=== PATIENT | male | born 1980 | race Caucasian/White ===

== ENCOUNTER 2019-01-08 03:12 | Emergency (ER) | payer SELFPAY ==
[~2019-01-08] VITALS: Ht 170.2 cm; Wt 72.6 kg
--- NOTE | 2019-01-08 03:30 | NUR ---
DR HIGGINS TO [facility]
[2019-01-08] MEDS ORDERED: CLIN300C11 PO (03:40)
[2019-01-08] MEDS ORDERED: CLINDAMYCIN 150 MG (CLEOCIN) CAP PO ONE (03:45)
[2019-01-08] MEDS ORDERED: IBUPROFEN 600 MG (MOTRIN) TAB PO ONE (03:45)
[2019-01-08 03:53] VITALS: BP 141/83
--- NOTE | 2019-01-08 12:42 | ED General ---
General Chief Complaint: Bite-Animal/Human/Insect Stated Complaint: STUNG BY WASP LT HAND;SWOLLEN Nursing Triage Note: STUNG BY A WASP TWO DAYS AGO INCREASED SWELLING AND PAIN. Nursing Sepsis Screen: No Definite Risk Source of Information: Patient Exam Limitations: No Limitations History of Present Illness Date Seen by Provider: Jan 08, 2019 Time Seen by Provider: 03:30 Initial Comments Patient is a 38 showed right-handed male who presents with left hand, wrist swelling after being stung by a wasp 2 days ago. Patient was stung on the ulnar aspect of the dorsum of his left hand. Patient initially washed area and cleansed it. Reports pain and swelling immediately in the vicinity of loss standing but has gradually migrated up to the proximal wrist increased swelling. No streaking noted. Reports moderate tenderness with palpation and range of motion. No medications therapies taken. No fever chills, nausea vomiting sweats. No history of MRSA. No history of Hymenoptera allergies. No other acute symptoms or complaints Timing/Duration: 1-2 Days Severity: Moderate Associated Systoms: Denies Symptoms Allergies and Home Medications Allergies Coded Allergies: No Known Drug Allergies (Unverified , 01/08/19) Home Medications Clindamycin HCl 300 Mg Capsule, 300 MG PO QID Prescribed by: CADY HIGGINS on 01/08/19 0340 Patient Home Medication List Home Medication List Reviewed: Yes Review of Systems Review of Systems Constitutional: no symptoms reported EENTM: see HPI Respiratory: no symptoms reported Cardiovascular: no symptoms reported Genitourinary: no symptoms reported Musculoskeletal: no symptoms reported Skin: see HPI Past Dqnrtxr-Dfvtho-Quuhgy Hx Patient Social History Alcohol Use: Occasionally Uses Recreational Drug Use: No Smoking Status: Current Everyday Smoker Type Used: Cigarettes 2nd Hand Smoke Exposure: Yes Recent Foreign Travel: No Contact w/Someone Who Travel: No Recent Infectious Disease Expo: No Recent Hopitalizations: No Seasonal Allergies Seasonal Allergies: No Past Medical History Surgeries: Yes (RIGHT KNEE TORN ACL REPAIR) Orthopedic Respiratory: No Cardiac: No Neurological: No Genitourinary: No Gastrointestinal: No Musculoskeletal: No Endocrine: No HEENT: No Cancer: No Psychosocial: Yes Anxiety, Depression Blood Disorders: No Physical Exam Vital Signs Vital Signs - First Documented 01/08/19 03:18 Temp 98.3 Pulse 87 Resp 20 B/P (MAP) 141/83 (102) Pulse Ox 96 Capillary Refill : Less Than 3 Seconds Height, Weight, BMI Height: 5'7.00" Weight: 160lbs. oz. 72.788200kg; BMI Method:Stated General Appearance: No Apparent Distress, WD/WN HEENT: PERRL/EOMI Neck: Full Range of Motion Respiratory: Lungs Clear Cardiovascular: Regular Rate, Rhythm Skin: Other (scabbed over insect bite to volar aspect of the dorsum of left hand, minimal light erythema with soft tissue swelling and tenderness extending to radial aspect of proximal wrist. No induration, weeping, drainage, fluctuance or streaking. Dental pain with range of motion.) Focused Exam Sepsis Stage: Ruled Out Progress/Results/Core Measures Suspected Sepsis Recent Fever Within 48 Hours: No Infection Criteria Present: None New/Unexplained Altered Menta: No Sepsis Screen: No Definite Risk SIRS Temperature:98.3 Pulse: 87 Respiratory Rate: 20 Blood Pressure 141 /83 Mean: 102 Results/Orders My Orders Orders - CADY HIGGINS DO Clindamycin Capsule (Cleocin Capsule) (01/08/19 03:45) Ibuprofen Tablet (Motrin Tablet) (01/08/19 03:45) Medications Given in ED Current Medications Medications Dose Ordered Sig/Milan Route Start Time Stop Time Status Last Admin Dose Admin Clindamycin HCl 300 mg ONCE ONCE PO 01/08/19 03:45 01/08/19 03:47 DC 01/08/19 03:45 300 MG Ibuprofen 600 mg ONCE ONCE PO 01/08/19 03:45 01/08/19 03:47 DC 01/08/19 03:45 600 MG Vital Signs/I&O 01/08/19 01/08/19 03:18 03:53 Temp 98.3 98.3 Pulse 87 87 Resp 20 20 B/P (MAP) 141/83 (102) 141/83 (102) Pulse Ox 96 96 Capillary Refill : Less Than 3 Seconds Blood Pressure Mean: 102 Departure Communication (Admissions) Wasp sting with localized allergic reaction with concern for possible early cellulitis. Patient given ibuprofen paste and arm sling and initial dose of clindamycin. Patient instructed to return to the ED in 24 hours for reexamination. Patient verbalizes understanding and agreement discharge instructions prior to departure. Impression Primary Impression: Wasp sting Additional Impression: Cellulitis of hand, left Disposition: 01 HOME, SELF-CARE Condition: Improved Departure-Patient Inst. Patient Instructions: Insect Allergy, Cellulitis (Skin Infection), Adult (DC) Add. Discharge Instructions: Take ibuprofen and benadryl for left pain and swelling and wear arm sling. Keep hand elevated above heart at rest. Take antibiotics as directed. Follow up with PCP or return to the ED in 24 hours for re-evaluation. All discharge instructions reviewed with patient and/or family. Voiced understanding. Scripts Clindamycin HCl (Clindamycin HCl) 300 Mg Capsule 300 MG PO QID, #60 CAP Prov: CADY HIGGINS DO 01/08/19 Work/School Note: Work Release Form Date Seen in the Emergency Department: Jan 08, 2019 Return to Work: Jan 11, 2019 Restrictions: No Restrictions CADY HIGGINS DO Jan 08, 2019 12:42
== END 2019-01-08 03:53 | disposition home or self-care (01) ==
LOC: ER FS 03:14
DX: T63.461A Toxic effect of venom of wasps, accidental (unintentional), initial encounter (principal); L03.114 Cellulitis of left upper limb; F41.9 Anxiety disorder, unspecified; F32.9 Major depressive disorder, single episode, unspecified; F17.210 Nicotine dependence, cigarettes, uncomplicated
CPT/HCPCS: 99283

== ENCOUNTER 2020-03-27 19:23 | Observation (INO) | payer BC ==
[~2020-03-27] VITALS: Ht 170.2 cm; Wt 82.8 kg
[~2020-03-27 19:23] MED LIST: CLIN300C11 PO
[2020-03-27] MEDS ORDERED: NS IV 1000 ML 1,000 ML IV SCH (20:09)
[2020-03-27] MEDS ORDERED: ASPIRIN 81 MG CHEW (CHILDREN'S ASA) PO ONE (20:15)
[2020-03-27 20:16] LABS: HEMATOCRIT 54 % (40-54); HEMOGLOBIN 18.8 G/DL (13.3-17.7); MEAN CORPUSCULAR HEMOGLOBIN 30 PG (25-34); MEAN CORPUSCULAR HGB CONC 35 G/DL (32-36); MEAN CORPUSCULAR VOLUME 85 FL (80-99); PLATELET COUNT 273 10^3/uL (130-400); WHITE BLOOD COUNT 9.9 10^3/uL (4.3-11.0)
[2020-03-27 20:17] LABS: BASOPHILS # (AUTO) 0.1 10^3/uL (0.0-0.1); BASOPHILS % (AUTO) 1 % (0-10); EOSINOPHILS # (AUTO) 0.1 10^3/uL (0.0-0.3); EOSINOPHILS % (AUTO) 1 % (0-10); FIBRIN DEGRADATION PRODUCTS 0.21 UG/ML (0.00-0.49); LYMPHOCYTES % (AUTO) 20 % (12-44); MEAN PLATELET VOLUME 9.7 FL (7.4-10.4); MONOCYTES # (AUTO) 0.5 X 10^3 (0.0-1.0); MONOCYTES % (AUTO) 5 % (0-12); NEUTROPHILS # (AUTO) 7.2 X 10^3 (1.8-7.8); NEUTROPHILS % (AUTO) 73 % (42-75); PROTHROMBIN TIME PATIENT 13.1 SEC (12.2-14.7)
[2020-03-27 20:18] LABS: ALANINE AMINOTRANSFERASE 21 U/L (0-55); ALBUMIN 4.1 GM/DL (3.2-4.5); ALKALINE PHOSPHATASE 93 U/L (40-136); BILIRUBIN,TOTAL 0.4 MG/DL (0.1-1.0); BUN/CREATININE RATIO 3; CALCIUM 9.1 MG/DL (8.5-10.1); CARBON DIOXIDE 17 MMOL/L (21-32); CHLORIDE 107 MMOL/L (98-107); CREATININE SERUM 0.74 MG/DL (0.60-1.30); GFR ESTIMATED > 60; GLUCOSE 95 MG/DL (70-105); POTASSIUM 3.7 MMOL/L (3.6-5.0); SODIUM 141 MMOL/L (135-145); TOTAL PROTEIN 7.1 GM/DL (6.4-8.2)
[2020-03-27 20:19] LABS: LIPASE 39 U/L (8-78)
--- NOTE | 2020-03-27 20:47 | Diagnostic Imaging Report ---
CHEST 1 VIEW AP/PA ONLY Indication: Chest pain. Comparison: None available. Findings: No focal airspace disease in the visualized lungs. Please note that the posterior lower lobes are poorly evaluated by portable radiography. No pleural effusion or pneumothorax. Normal cardiomediastinal silhouette. Impression: 1. No acute cardiopulmonary process by portable radiography. Dictated by: Dictated on workstation # [id number]
[2020-03-27] MEDS ORDERED: ANTACID SUSP 30 ML UDC (MYLANTA) PO ONE (21:00)
[2020-03-27] MEDS ORDERED: FAMOTIDINE 20MG/2ML IV (PEPCID) IVP ONE (21:00)
[2020-03-27] MEDS ORDERED: LIDOCAINE 2% VISCOUS 15 ML UDC PO ONE (21:00)
[2020-03-27] MEDS ORDERED: ACETAMINOPHEN 500 MG TAB (TYLENOL) PO ONE (21:00)
[2020-03-27 21:09] LABS: AMPHETAMINE SCREEN, URINE NEGATIVE (NEGATIVE); BARBITURATE SCREEN URINE NEGATIVE (NEGATIVE); BENZODIAZEPINES SCREEN URINE NEGATIVE (NEGATIVE); CANNABINOID SCREEN, URINE NEGATIVE (NEGATIVE); COCAINE SCREEN URINE NEGATIVE (NEGATIVE); METHADONE STAT NEGATIVE (NEGATIVE); METHAMPHETAMINE SCREEN URINE S NEGATIVE (NEGATIVE); OPIATE SCREEN URINE NEGATIVE (NEGATIVE); OXYCODONE STAT NEGATIVE (NEGATIVE); PROPOXYPHENE STAT NEGATIVE (NEGATIVE); TRICYCLIC ANTIDEPRESSANTS SCRE NEGATIVE (NEGATIVE)
--- NOTE | 2020-03-27 22:38 | ED Chest Pain ---
General Chief Complaint: Cardiac/General Problems Stated Complaint: CHEST PAIN Nursing Triage Note: pt states chest pain started yesterday evening around 1700, pain increases with deep inspiration, no radiation Nursing Sepsis Screen: No Definite Risk History of Present Illness Date Seen by Provider: Mar 27, 2020 Time Seen by Provider: 19:25 Initial Comments The patient is a 40-year-old male with a history of tobacco abuse as well as daily alcohol abuse. He does not have other known medical history but does not follow routinely with physicians and does not have a primary care physician. He presents for evaluation of sharp but poorly localizing retrosternal chest discomfort with onset yesterday afternoon, constant since then. Severity about 8 out of 10 just prior to arrival. Pain is nonexertional but somewhat pleuritic. It does not radiate aside from to the bilateral shoulders. Associated mild shortness of breath. No associated fevers, nausea or vomiting, upper respiratory congestion/rhinorrhea, cough, flank pain, midline back pain, abdominal pain of any kind. Patient has never had similar discomfort in the past. Patient is alert and pleasantly and appropriately interactive and in no significant distress upon initial assessment here in the emergency department. He does smell of alcohol. Vital signs are appropriate here aside from mild tac hycardia. Allergies and Home Medications Allergies Coded Allergies: No Known Drug Allergies (Unverified , 01/08/19) Home Medications Clindamycin HCl 300 Mg Capsule, 300 MG PO QID Prescribed by: CADY HIGGINS on 01/08/19 2090 Patient Home Medication List Home Medication List Reviewed: Yes Review of Systems Review of Systems Constitutional: see HPI All Other Systems Reviewed Negative Unless Noted: Yes (Negative excepted noted.) Past Fgwtmyd-Oqeoxj-Nkjgkz Hx Past Med/Social Hx: Reviewed Nursing Past Med/Soc Hx Patient Social History Alcohol Use: Occasionally Uses Number of Drinks Today: AA Alcohol Beverage of Choice: Beer Recreational Drug Use: No Smoking Status: Current Everyday Smoker Type Used: Cigarettes 2nd Hand Smoke Exposure: Yes Recent Foreign Travel: No Contact w/Someone Who Travel: No Recent Infectious Disease Expo: No Recent Hopitalizations: No Physical Abuse: No Sexual Abuse: No Mistreated: No Fear: No Seasonal Allergies Seasonal Allergies: No Past Medical History Surgeries: Yes (RIGHT KNEE TORN ACL REPAIR) Orthopedic Respiratory: No Cardiac: No Neurological: No Genitourinary: No Gastrointestinal: No Musculoskeletal: No Endocrine: No HEENT: No Cancer: No Psychosocial: Yes Anxiety, Depression Integumentary: No Blood Disorders: No Family Medical History Reviewed Nursing Family Hx Physical Exam Vital Signs Vital Signs - First Documented 03/27/20 03/27/20 19:35 19:41 Temp 37.2 Pulse 99 Resp 16 B/P (MAP) 145/97 (113) Pulse Ox 95 O2 Delivery Room Air Capillary Refill : Less Than 3 Seconds Height, Weight, BMI Height: 5'7.00" Weight: 160lbs. oz. 72.157901qn; 25.00 BMI Method:Stated General Appearance: No Apparent Distress Other comments This is a middle-aged male appearing nontoxic and in no acute distress. Head is normocephalic and atraumatic. Neck is supple and nontender. Oropharynx is moist. Lungs are clear to auscultation at all stations. There is a normal S1 and S2 without rubs or gallops and capillary refill is appropriate, less than 2 seconds globally. Bilateral upper and lower extremities are neurovascularly intact with excellent distal pulses, 2+ and equal in all extremities. Abdomen is soft, nontender and nondistended. Skin is warm and dry without cyanosis, clubbing or edema. Psychiatrically, the patient demonstrates appropriate mood and affect and is alert. Progress/Results/Core Measures Results/Orders Lab Results Laboratory Tests Test 03/27/20 19:35 03/27/20 20:50 Range/Units White Blood Count 9.9 4.3-11.0 10^3/uL Red Blood Count 6.32 H 4.35-5.85 10^6/uL Hemoglobin 18.8 H 13.3-17.7 G/DL Hematocrit 54 40-54 % Mean Corpuscular Volume 85 80-99 FL Mean Corpuscular Hemoglobin 30 25-34 PG Mean Corpuscular Hemoglobin Concent 35 32-36 G/DL Red Cell Distribution Width 14.2 10.0-14.5 % Platelet Count 273 130-400 10^3/uL Mean Platelet Volume 9.7 7.4-10.4 FL Neutrophils (%) (Auto) 73 42-75 % Lymphocytes (%) (Auto) 20 12-44 % Monocytes (%) (Auto) 5 0-12 % Eosinophils (%) (Auto) 1 0-10 % Basophils (%) (Auto) 1 0-10 % Neutrophils # (Auto) 7.2 1.8-7.8 X 10^3 Lymphocytes # (Auto) 2.0 1.0-4.0 X 10^3 Monocytes # (Auto) 0.5 0.0-1.0 X 10^3 Eosinophils # (Auto) 0.1 0.0-0.3 10^3/uL Basophils # (Auto) 0.1 0.0-0.1 10^3/uL Prothrombin Time 13.1 12.2-14.7 SEC INR Comment 1.0 0.8-1.4 Activated Partial Thromboplast Time 25 24-35 SEC D-Dimer 0.21 0.00-0.49 UG/ML Sodium Level 141 135-145 MMOL/L Potassium Level 3.7 3.6-5.0 MMOL/L Chloride Level 107 98-107 MMOL/L Carbon Dioxide Level 17 L 21-32 MMOL/L Anion Gap 17 H 5-14 MMOL/L Blood Urea Nitrogen 2 L 7-18 MG/DL Creatinine 0.74 0.60-1.30 MG/DL Estimat Glomerular Filtration Rate > 60 BUN/Creatinine Ratio 3 Glucose Level 95 70-105 MG/DL Calcium Level 9.1 8.5-10.1 MG/DL Corrected Calcium 9.0 8.5-10.1 MG/DL Total Bilirubin 0.4 0.1-1.0 MG/DL Aspartate Amino Transf (AST/SGOT) 19 5-34 U/L Alanine Aminotransferase (ALT/SGPT) 21 0-55 U/L Alkaline Phosphatase 93 40-136 U/L Troponin I < 0.30 <0.30 NG/ML Pro-B-Type Natriuretic Peptide 55.0 <75.0 PG/ML Total Protein 7.1 6.4-8.2 GM/DL Albumin 4.1 3.2-4.5 GM/DL Lipase 39 8-78 U/L Serum Alcohol 131 H <10 MG/DL Urine Opiates Screen NEGATIVE NEGATIVE Urine Oxycodone Screen NEGATIVE NEGATIVE Urine Methadone Screen NEGATIVE NEGATIVE Urine Propoxyphene Screen NEGATIVE NEGATIVE Urine Barbiturates Screen NEGATIVE NEGATIVE Ur Tricyclic Antidepressants Screen NEGATIVE NEGATIVE Urine Phencyclidine Screen NEGATIVE NEGATIVE Urine Amphetamines Screen NEGATIVE NEGATIVE Urine Methamphetamines Screen NEGATIVE NEGATIVE Urine Benzodiazepines Screen NEGATIVE NEGATIVE Urine Cocaine Screen NEGATIVE NEGATIVE Urine Cannabinoids Screen NEGATIVE NEGATIVE My Orders Orders - JAMAR BLAIR MD Cbc With Automated Diff (9/6/20 20:09) Comprehensive Metabolic Panel (03/27/20 20:09) Troponin I Fs (03/27/20 20:09) Ekg Tracing (03/27/20 20:09) Chest 1 View Ap/Pa Only (03/27/20 20:09) Protime With Inr (03/27/20 20:09) Partial Thromboplastin Time (03/27/20 20:09) Alcohol (03/27/20 20:09) Drug Screen Stat (Urine) (03/27/20 20:09) Probnp Fs (03/27/20 20:09) Fibrin Degradation Products (03/27/20 20:09) Lipase (03/27/20 20:09) Ed Iv/Invasive Line Start (03/27/20 20:09) Ns Iv 1000 Ml (Sodium Chloride 0.9%) (03/27/20 20:09) Aspirin Chewable Tablet (Baby Aspirin Ch (03/27/20 20:15) Acetaminophen Tablet (Tylenol Tablet) (03/27/20 21:00) Famotidine Injection (Pepcid Injection) (03/27/20 21:00) Lidocaine 2% Viscous 15 Ml (Xylocaine Vi (03/27/20 21:00) Antacid Suspension (Mylanta Suspension (03/27/20 21:00) Medications Given in ED Current Medications Medications Dose Ordered Sig/Milan Route Start Time Stop Time Status Last Admin Dose Admin Acetaminophen 1,000 mg ONCE ONCE PO 03/27/20 21:00 03/27/20 21:01 DC 03/27/20 21:04 1,000 MG Al Hydrox/Mg Hydrox/Simethicone 30 ml ONCE ONCE PO 03/27/20 21:00 03/27/20 21:01 DC 03/27/20 21:04 30 ML Aspirin 324 mg ONCE ONCE PO 03/27/20 20:15 03/27/20 20:16 DC 03/27/20 20:23 324 MG Famotidine 20 mg ONCE ONCE IVP 03/27/20 21:00 03/27/20 21:01 DC 03/27/20 21:05 20 MG Lidocaine HCl 15 ml ONCE ONCE PO 03/27/20 21:00 03/27/20 21:01 DC 03/27/20 21:05 15 ML Vital Signs/I&O 03/27/20 03/27/20 19:35 19:41 Temp 37.2 Pulse 99 Resp 16 B/P (MAP) 145/97 (113) Pulse Ox 95 O2 Delivery Room Air Room Air Blood Pressure Mean: 113 Progress Progress Note : Time: 22:38 Progress Note Labs and imaging unrevealing of any evidence of acute process aside from alcohol intoxication. Patient has received aspirin as well as Pepcid, Tylenol and GI cocktail to address possible alcoholic gastritis without any change in his chest pain symptoms. We will give a small dose of morphine and a sublingual nitroglycerin and admit for observation, troponin trending and attention from the mission planner in the morning given risk factors and lack of good close follow-up. Dr. Celaya graciously accepts. Stable for transfer at this time. Comment Sinus tachycardia, rate 103, no acute ST elevation or depression, RI 155, QRS 97, QTC 434, EP interpretation. Diagnostic Imaging Comments CHEST 1 VIEW AP/PA ONLY Indication: Chest pain. Comparison: None available. Findings: No focal airspace disease in the visualized lungs. Please note that the posterior lower lobes are poorly evaluated by portable radiography. No pleural effusion or pneumothorax. Normal cardiomediastinal silhouette. Impression: 1. No acute cardiopulmonary process by portable radiography. Dictated by: Dictated on workstation # [id number] Departure Impression Primary Impression: Other chest pain Additional Impression: Acute alcohol intoxication Qualified Codes: F10.920 - Alcohol use, unspecified with intoxication, uncomplicated Disposition: ADMITTED INPATIENT Condition: Stable Departure-Patient Inst. Referrals: NO,LOCAL PHYSICIAN (PCP/Family) Primary Care Physician JAMAR BLAIR MD Mar 27, 2020 22:38
[2020-03-27] MEDS ORDERED: morphine INJ 10 MG/ML 1ML (SYR OR VIAL) IVP STA (22:41)
[2020-03-27] MEDS ORDERED: NITROGLYCERIN 0.4 MG SL TABS BTL 25'S SL ONE (22:45)
[2020-03-27] MEDS ORDERED: morphine INJ 4 MG/ML 1 ML (VIAL/SYRINGE) IV PRN (23:45)
[2020-03-27] MEDS ORDERED: ONDANSETRON 4 MG/2 ML (SDV) Z0FRAN IV PRN (23:45)
[2020-03-28] VITALS (14 sets, daily range): BP systolic 119–142; BP diastolic 85–113
[2020-03-28 05:04] LABS: BASOPHILS # (AUTO) 0.1 10^3/uL (0.0-0.1); BASOPHILS % (AUTO) 1 % (0-10); EOSINOPHILS # (AUTO) 0.2 10^3/uL (0.0-0.3); EOSINOPHILS % (AUTO) 2 % (0-10); HEMATOCRIT 51 % (40-54); HEMOGLOBIN 17.4 G/DL (13.3-17.7); LYMPHOCYTES # (AUTO) 2.2 X 10^3 (1.0-4.0); LYMPHOCYTES % (AUTO) 32 % (12-44); MEAN CORPUSCULAR HEMOGLOBIN 30 PG (25-34); MEAN CORPUSCULAR HGB CONC 34 G/DL (32-36); MEAN CORPUSCULAR VOLUME 87 FL (80-99); MEAN PLATELET VOLUME 10.6 FL (7.4-10.4); MONOCYTES # (AUTO) 0.5 X 10^3 (0.0-1.0); MONOCYTES % (AUTO) 8 % (0-12); NEUTROPHILS # (AUTO) 3.9 X 10^3 (1.8-7.8); NEUTROPHILS % (AUTO) 57 % (42-75); PLATELET COUNT 246 10^3/uL (130-400); WHITE BLOOD COUNT 6.8 10^3/uL (4.3-11.0)
[2020-03-28 05:20] LABS: ALBUMIN 3.5 GM/DL (3.2-4.5)
[2020-03-28 05:21] LABS: CHLORIDE 110 MMOL/L (98-107); POTASSIUM 4.3 MMOL/L (3.6-5.0); SODIUM 140 MMOL/L (135-145)
[2020-03-28 05:22] LABS: CALCIUM 8.3 MG/DL (8.5-10.1)
[2020-03-28 05:23] LABS: GLUCOSE 84 MG/DL (70-105); TOTAL PROTEIN 6.7 GM/DL (6.4-8.2)
[2020-03-28 05:24] LABS: CARBON DIOXIDE 19 MMOL/L (21-32)
[2020-03-28 05:25] LABS: BILIRUBIN,TOTAL 0.5 MG/DL (0.1-1.0)
[2020-03-28 05:26] LABS: ALKALINE PHOSPHATASE 72 U/L (40-136)
[2020-03-28 05:27] LABS: CREATININE SERUM 0.81 MG/DL (0.60-1.30); GFR ESTIMATED > 60
[2020-03-28 05:28] LABS: BUN/CREATININE RATIO 5
[2020-03-28 05:30] LABS: ALANINE AMINOTRANSFERASE 21 U/L (0-55)
--- NOTE | 2020-03-28 08:02 | History & Physical-Hospitalist ---
History of Present Illness HPI/Chief Complaint patient is 40-year-old male with no known past medical history who presented to the hospital due to chest pain. He states that his symptoms have been going on the pill roughly 3 days. There is no rhyme or reason to when his chest pain starts. He describes as severe and rates it as an 8 out of 10 radiating to his shoulders. it is not worse with exertion. There are no alleviating or aggravating factors. It just goes away on its own. troponin was negative on arrival as well as EKG. He is currently chest pain-free. He does have a pack-a-day smoking history. Source: patient Date Seen 03/28/20 Time Seen by a Provider: 07:57 Attending Physician Maggie Celaya MD PCP No,Local Physician Referring Physician Date of Admission Mar 27, 2020 at 23:37 Home Medications & Allergies Home Medications Reviewed patient Home Medication Reconciliation performed by pharmacy medication reconciliations cleaning technician and/or nursing. Patients Allergies have been reviewed. Allergies Allergies Coded Allergies No Known Drug Allergies (Unverified01/08/19) Past Mkqkjrp-Eodctb-Tewtmm Hx Past Med/Social Hx: Reviewed Nursing Past Med/Soc Hx Patient Social History Alcohol Use: Occasionally Uses Alcohol Beverage of Choice: Beer Recreational Drug Use: No Smoking Status: Current Everyday Smoker Type Used: Cigarettes 2nd Hand Smoke Exposure: Yes Recent Foreign Travel: No Contact w/other who traveled: No Recent Hopitalizations: No Recent Infectious Disease Expo: No Seasonal Allergies Seasonal Allergies: No Past Medical History Surgeries: Orthopedic Psychosocial: Anxiety, Depression History of Blood Disorders: No Family History Reviewed Nursing Family Hx No Pertinent Family Hx Review of Systems Constitutional: No chills, No diaphoresis, No fever EENTM: no symptoms reported Respiratory: No cough, No dyspnea on exertion, No short of breath Cardiovascular: chest pain; No edema, No Hx of Intervention Gastrointestinal: No abdominal pain, No nausea, No vomiting Genitourinary: no symptoms reported Musculoskeletal: no symptoms reported Skin: no symptoms reported Psychiatric/Neurological: No Symptoms Reported Physical Exam Physical Exam Vital Signs Vital Signs - First Documented 03/27/20 03/27/20 19:35 19:41 Temp 37.2 Pulse 99 Resp 16 B/P (MAP) 145/97 (113) Pulse Ox 95 O2 Delivery Room Air Capillary Refill : Less Than 3 Seconds Height, Weight, BMI Height: 5'7.00" Weight: 160lbs. oz. 72.608008zg; 25.00 BMI Method:Stated General Appearance: No Apparent Distress, WD/WN HEENT: PERRL/EOMI, Moist Mucous Membranes; No Scleral Icterus (L), No Scleral Icterus (R) Respiratory: Lungs Clear, No Accessory Muscle Use, No Respiratory Distress Cardiovascular: Regular Rate, Rhythm, No Murmur, Other (tenderness to palpitation over sternum) Gastrointestinal: Normal Bowel Sounds, Non Tender, Soft Extremity: Normal Capillary Refill, No Calf Tenderness, No Pedal Edema Neurologic/Psychiatric: Alert, Oriented x3, Normal Mood/Affect Skin: Normal Color, Warm/Dry Results Results/Procedures Labs Patient resulted labs reviewed. Imaging: Reviewed Imaging Report [facility] [place] [place] NAME: RICKY COSTA [facility] REC#: [id number] PT STATUS: REG ER : 1980 PHYSICIAN: JAMAR BLAIR MD ADMIT DATE: 03/27/20/ER FS Signed Date of Exam:03/27/20 CHEST 1 VIEW AP/PA ONLY CHEST 1 VIEW AP/PA ONLY Indication: Chest pain. Comparison: None available. Findings: No focal airspace disease in the visualized lungs. Please note that the posterior lower lobes are poorly evaluated by portable radiography. No pleural effusion or pneumothorax. Normal cardiomediastinal silhouette. Impression: 1. No acute cardiopulmonary process by portable radiography. Dictated by: Dictated on workstation # [id number] Dict: 03/27/202044 Trans: 03/27/202045 [facility] [id number] Interpreted by: ERIC HAHN MD Electronically signed by: ERIC HAHN MD 03/27/202045 Assessment/Plan Admission Diagnosis Chest pain Admission Status: Observation Assessment and Plan Chest pain Seems noncardiac in nature but given risk factors admitted for obs No current chest pain Troponins negative x2 Cardiology consulted, appreciate recs Cardiology offered workup inpatient but patient would prefer to DC and do outpatient workup Will DC home for follow up this week with cardiology Tobacco abuse Recommended smoking cessatoin Alcohol abuse Alcohol level 131 on arrival Drinks 3 beers/day No history of withdrawal Diagnosis/Problems Diagnosis/Problems (1) Tobacco abuse Status: Chronic (2) Acute alcohol intoxication Status: Acute Qualifiers: Complication of substance-induced condition: uncomplicated Qualified Codes: F10.920 - Alcohol use, unspecified with intoxication, uncomplicated (3) Other chest pain Status: Acute Clinical Quality Measures DVT/VTE Risk/Contraindication: Risk Factor Score Per Nursin RFS Level Per Nursing on Admit: 1=Low/No VTE PPX MAGGIE CELAYA MD Mar 28, 2020 08:02
--- NOTE | 2020-03-28 12:59 | NUR ---
OUTPT ORDER FOR PAULINO FAXED TO CHERELLE AT DR WHALEN OFFICE FOR P.A. COPY OF ORDER GIVEN TO PT.
--- NOTE | 2020-03-28 13:03 | Discharge Inst-Simple/Standard ---
Discharge Inst-Standard Discharge Medications New, Converted or Re-Newed RX: Transmitted to Pharmacy Patient Instructions/Follow Up Plan of Care/Instructions/FU: Please follow up on as scheduled with Dr Ernandez for stress testing. Activity as Tolerated: Yes Discharge Diet: Cardiac Diet Return to The Hospital For: Chest pain, shortness of breath, heart racing, nausea or vomiting, fever, if you feel you are getting worse. MAGGIE MELENDEZ MD Mar 28, 2020 13:03
--- NOTE | 2020-03-28 14:59 | Consultation-Cardiology ---
HPI-Cardiology Cardiology Consultation: Date of Consultation 03/28/20 Date of Admission Attending Physician Jacqueline Celaya MD Admitting Physician No,Local Physician Consulting Physician Kyaw ERNANDEZ MD HPI: Time Seen by a Provider: 12:00 Chief Complaint: Chest pain This is a 40-year-old gentleman who has history of active smoking and alcohol abuse. He denies any cardiac or medical history. He presents with chest pain. 02/28. Constant. Atypical. Associated with mild shortness of breath. No other cardiac complaints. Pertinent family history is negative. Review of Systems-Cardiology Review of Systems Constitutional: As described under HPI; No As described under HPI, No no symptoms reported, No chills, No fever, No lightheadedness Eyes: No As described under HPI, No no symptoms reported, No blindness, No blurred vision, No contact lenses, No drainage, No decreased acuity, No foreign body sensation, No pain, No vision change Ears/Nose/Throat: No As described under HPI, No no symptoms reported, No chronic hearing loss, No ear discharge, No ear pain, No nasal drainage, No ulcerations Respiratory: No no symptoms reported; As described under HPI; No As described under HPI, No cough, No orthopnea, No shortness of breath, No SOB with excertion Cardiovascular: No no symptoms reported; As described under HPI; No As described under HPI; chest pain; No edema, No irregular heart rate, No lightheadedness, No palpitations Gastrointestinal: No no symptoms reported, No As described under HPI, No abdomen distended, No abdominal pain, No blood streaked bowels, No constipation, No diarrhea, No nausea, No vomiting, No stool coloration changes Genitourinary: No As described under HPI, No burning, No dysuria, No discharge, No frequency, No flank pain, No hematuria, No urgency Skin: No rash, No skin related problems, No ulcerations Psychiatric/Neurological: No anxiety, No depression, No seizure, No focal weakness, No syncope Hematologic: No bleeding abnormalities All Other Systems Reviewed Negative Unless Noted: Yes (Negative excepted noted.) JMF-Wyotjt-Cbealw Hx Patient Social History Alcohol Use: Occasionally Uses Recreational Drug Use: No Smoking Status: Current Everyday Smoker Type Used: Cigarettes 2nd Hand Smoke Exposure: Yes Recent Foreign Travel: No Recent Infectious Disease Expo: No Hospitalization with Isolation: Denies Past Medical History PMH As described under Assessment. Allergies and Home Medications Allergies Coded Allergies: No Known Drug Allergies (Unverified , 01/08/19) Home Medications No Active Prescriptions or Reported Meds Patient Home Medication List Home Medication List Reviewed: Yes Physical Exam-Cardiology Physical Exam Vital Signs/I&O Capillary Refill : Less Than 3 Seconds Constitutional: appears stated age, AAO x 3; No apparent distress; well- developed, well-nourished HEENT: PERRL; No discharge; hearing is well preserved, oral hygience is good; No ulceration, No xanthelasmas are seen Neck: No carotid bruit; carotid pulses are 2 + bilaterally Respiratory: chest is bilaterally symmetric, lungs clear to auscultation Cardiovascular: regular rate-rhythm, tachycardia, S1 and S2; No diastolic murmur, No systolic murmur Gastrointestinal: soft, audible bowel sounds; No spleenomegaly Rectal: deferred Extremities: normal range of motion, non-tender, normal inspection; No cl ubbing, No cyanosis; no lower extremity edema bilateral; No significant edema Neurologic/Psychiatric: no motor/sensory deficits, alert, normal mood/affect, oriented x 3, power is 5/5 both on sides Skin: normal color, warm/dry; No rash, No ulcerations Data Review Labs ECG Impression ECG Initial ECG Rhythm: S.Tach Initial ECG Impression: Nonspecific Changes A/P-Cardiology Assessment/Admission Diagnosis Chest pain, Active smoking, Alcohol abuse, Sinus tachycardia Plan Chest pain, serial troponin. EKG does not show any acute ST segment changes. Echocardiogram and nuclear stress test is recommended. The patient does not want to have an inpatient nuclear stress test. We will have to arrange it as an outpatient. The patient was educated to seek immediate medical attention if he has recurrent chest pain or shortness of breath. The patient understands. Active smoking, strongly recommended to quit. Alcohol abuse, abstinence was strongly recommended. Sinus tachycardia, could be secondary to alcohol withdrawal. Thank you for your consultation. Please call me if you have any questions. Anny Ernandez MD, FACP, FACC, FSCAI, FHRS, CCDS Interventional Cardiology Cardiac Electrophysiology Vascular Medicine and Endovascular Interventions Clinical Quality Measures DVT/VTE Risk/Contraindication: Risk Factor Score Per Nursin RFS Level Per Nursing on Admit: 1=Low/No VTE PPX Kyaw ERNANDEZ MD Mar 28, 2020 14:59
--- NOTE | 2020-03-28 15:10 | NUR ---
RICKY COSTA demonstrates understanding of discharge instructions and accurately returns instructions upon questioning. Copy of Post-Discharge Instructions and Medication Discharge Instructions given to PT. RICKY COSTA is able to manage continuing needs after discharge. Patients belongings returned to PT. Skin dry and intact; no breakdown noted. Patient discharged from [facility] on 03/28/20 at 1510. RICKY COSTA left floor via AMBULATION, accompanied by STAFF.
== END 2020-03-28 15:10 | disposition home or self-care (01) ==
LOC: EDUNIT# 19:23 → ER FS 19:31 → ICU 23:37
PROVIDERS: ADMIT Family Medicine; ATTEND Family Medicine
DX: R07.89 Other chest pain (principal); F41.9 Anxiety disorder, unspecified; F32.9 Major depressive disorder, single episode, unspecified; F17.210 Nicotine dependence, cigarettes, uncomplicated; I36.1 Nonrheumatic tricuspid (valve) insufficiency; Z79.82 Long term (current) use of aspirin; Z79.899 Other long term (current) drug therapy; F10.920 Alcohol use, unspecified with intoxication, uncomplicated
CPT/HCPCS: 36415; 71045; 80053 ×2; 80306; 83690; 83880; 84484 ×2; 85025 ×2; 85379; 85610; 85730; 93005 ×2; 93306; 99283; G0378; G0480; 80320

== ENCOUNTER 2020-05-04 19:44 | Emergency (ER) | payer BC ==
[~2020-05-04] VITALS: Ht 170.2 cm; Wt 79.5 kg
[2020-05-04] MEDS ORDERED: KETOROLAC 30 MG/ML VIAL IVP STA (19:54)
[2020-05-04] MEDS ORDERED: hydrOXYzine (VISTARIL/ATARAX) 25 MG capsule/tablet PO ONE (20:00)
[2020-05-04] MEDS ORDERED: NS IV 1000 ML 1,000 ML IV ONE (20:00)
--- NOTE | 2020-05-04 20:00 | ED Chest Pain ---
General Stated Complaint: CHEST PAIN History of Present Illness Date Seen by Provider: May 04, 2020 Time Seen by Provider: 19:50 Initial Comments 40-year-old male presents with chest pain. Patient reports his left-sided. It been going on and off since 4:30 this morning. Reports he got worse this afternoon. Patient was seen here on March 27 for exactly same symptoms. At that time patient was transferred to [facility] for observation. He had serial EKGs and serial troponins are negative. Patient was recommended a stress test and echo. He declined inpatient and has not been an outpatient one yet. At that time it was suspected the patient was having acute alcohol withdrawal. Allergies and Home Medications Allergies Coded Allergies: No Known Drug Allergies (Unverified , 01/08/19) Home Medications No Active Prescriptions or Reported Meds Patient Home Medication List Home Medication List Reviewed: Yes Review of Systems Review of Systems Constitutional: No chills; fever Respiratory: Denies Cough; Shortness of Air Cardiovascular: Chest Pain; Denies Irregular Heart Rate, Denies Syncope Genitourinary: No Symptoms Reported Musculoskeletal: no symptoms reported Skin: no symptoms reported Psychiatric/Neurological: No Symptoms Reported Endocrine: No Symptoms Reported Past Boomqnx-Emahne-Urqihw Hx Past Med/Social Hx: Reviewed Nursing Past Med/Soc Hx Patient Social History Alcohol Beverage of Choice: Beer Type Used: Cigarettes 2nd Hand Smoke Exposure: Yes Recent Hopitalizations: No Seasonal Allergies Seasonal Allergies: No Past Medical History Surgeries: Yes (RIGHT KNEE TORN ACL REPAIR) Orthopedic Respiratory: No Cardiac: No Neurological: No Genitourinary: No Gastrointestinal: No Musculoskeletal: No Endocrine: No HEENT: No Cancer: No Psychosocial: Yes Anxiety, Depression Integumentary: No Blood Disorders: No Family Medical History No Pertinent Family Hx Physical Exam Vital Signs Vital Signs - First Documented 05/04/20 19:44 Temp 37.0 Pulse 104 Resp 24 B/P (MAP) 164/92 (116) Pulse Ox 96 O2 Delivery Room Air Capillary Refill : Height, Weight, BMI Height: 5'7.00" Weight: 160lbs. oz. [id number]; 25.00 BMI Method:Stated General Appearance: Anxious, Mild Distress Respiratory: Lungs Clear, Normal Breath Sounds Cardiovascular: No Edema, Tachycardia Gastrointestinal: Non Tender, Soft Extremity: Normal Capillary Refill, Normal Inspection Neurologic/Psychiatric: Alert, Oriented x3, Normal Mood/Affect, aquatics director II-XII Norm as Tested Skin: Normal Color, Warm/Dry Progress/Results/Core Measures Results/Orders Lab Results Laboratory Tests Test 05/04/20 19:52 05/04/20 20:20 05/04/20 22:08 Range/Units White Blood Count 9.8 4.3-11.0 10^3/uL Red Blood Count 6.54 H 4.35-5.85 10^6/uL Hemoglobin 18.5 H 13.3-17.7 G/DL Hematocrit 54 40-54 % Mean Corpuscular Volume 82 80-99 FL Mean Corpuscular Hemoglobin 28 25-34 PG Mean Corpuscular Hemoglobin Concent 34 32-36 G/DL Red Cell Distribution Width 15.1 H 10.0-14.5 % Platelet Count 319 130-400 10^3/uL Mean Platelet Volume 9.8 7.4-10.4 FL Immature Granulocyte % (Auto) 0 % Neutrophils (%) (Auto) 69 42-75 % Lymphocytes (%) (Auto) 23 12-44 % Monocytes (%) (Auto) 6 0-12 % Eosinophils (%) (Auto) 0 0-10 % Basophils (%) (Auto) 1 0-10 % Neutrophils # (Auto) 6.7 1.8-7.8 X 10^3 Lymphocytes # (Auto) 2.3 1.0-4.0 X 10^3 Monocytes # (Auto) 0.6 0.0-1.0 X 10^3 Eosinophils # (Auto) 0.0 0.0-0.3 10^3/uL Basophils # (Auto) 0.1 0.0-0.1 10^3/uL Immature Granulocyte # (Auto) 0.0 0.0-0.1 10^3/uL Prothrombin Time 13.3 12.2-14.7 SEC INR Comment 1.0 0.8-1.4 Activated Partial Thromboplast Time 25 24-35 SEC D-Dimer 0.28 0.00-0.49 UG/ML Sodium Level 135 135-145 MMOL/L Potassium Level 3.2 L 3.6-5.0 MMOL/L Chloride Level 102 98-107 MMOL/L Carbon Dioxide Level 14 L 21-32 MMOL/L Anion Gap 19 H 5-14 MMOL/L Blood Urea Nitrogen 5 L 7-18 MG/DL Creatinine 0.70 0.60-1.30 MG/DL Estimat Glomerular Filtration Rate > 60 BUN/Creatinine Ratio 7 Glucose Level 100 70-105 MG/DL Calcium Level 9.5 8.5-10.1 MG/DL Corrected Calcium 9.4 8.5-10.1 MG/DL Magnesium Level 2.0 1.6-2.4 MG/DL Total Bilirubin 0.7 0.1-1.0 MG/DL Aspartate Amino Transf (AST/SGOT) 21 5-34 U/L Alanine Aminotransferase (ALT/SGPT) 18 0-55 U/L Alkaline Phosphatase 81 40-136 U/L Troponin I < 0.30 < 0.30 <0.30 NG/ML Pro-B-Type Natriuretic Peptide 32.7 <75.0 PG/ML Total Protein 7.3 6.4-8.2 GM/DL Albumin 4.1 3.2-4.5 GM/DL Serum Alcohol 82 H <10 MG/DL Urine Color PALE YELLOW Urine Clarity CLEAR Urine pH 6.5 5-9 Urine Specific [place] <=1.005 1.016-1.022 Urine Protein NEGATIVE NEGATIVE Urine Glucose (UA) NEGATIVE NEGATIVE Urine Ketones NEGATIVE NEGATIVE Urine Nitrite NEGATIVE NEGATIVE Urine Bilirubin NEGATIVE NEGATIVE Urine Urobilinogen 0.2 < = 1.0 MG/DL Urine Leukocyte Esterase TRACE H NEGATIVE Urine RBC (Auto) TRACE H NEGATIVE Urine RBC NONE /HPF Urine WBC 0-2 /HPF Urine Squamous Epithelial Cells RARE /HPF Urine Crystals NONE /LPF Urine Bacteria NEGATIVE /HPF Urine Casts NONE /LPF Urine Mucus NEGATIVE /LPF Urine Culture Indicated NO Urine Opiates Screen NEGATIVE NEGATIVE Urine Oxycodone Screen NEGATIVE NEGATIVE Urine Methadone Screen NEGATIVE NEGATIVE Urine Propoxyphene Screen NEGATIVE NEGATIVE Urine Barbiturates Screen NEGATIVE NEGATIVE Ur Tricyclic Antidepressants Screen NEGATIVE NEGATIVE Urine Phencyclidine Screen NEGATIVE NEGATIVE Urine Amphetamines Screen NEGATIVE NEGATIVE Urine Methamphetamines Screen NEGATIVE NEGATIVE Urine Benzodiazepines Screen NEGATIVE NEGATIVE Urine Cocaine Screen NEGATIVE NEGATIVE Urine Cannabinoids Screen NEGATIVE NEGATIVE My Orders Orders - LOZANO,BRENDEN L DO Cbc With Automated Diff (05/04/20 19:54) Magnesium (05/04/20 19:54) Chest 1 View Ap/Pa Only (05/04/20 19:54) Ekg Tracing (05/04/20 19:54) Comprehensive Metabolic Panel (05/04/20 19:54) Protime With Inr (05/04/20 19:54) Partial Thromboplastin Time (05/04/20 19:54) Monitor-Rhythm Ecg Trace Only (05/04/20 19:54) Ed Iv/Invasive Line Start (05/04/20 19:54) Fibrin Degradation Products (05/04/20 19:54) Troponin I Fs (05/04/20 19:54) Probnp Fs (05/04/20 19:54) Ketorolac Injection (Toradol Injection) (05/04/20 19:54) Drug Screen Stat (Urine) (05/04/20 19:54) Ua Culture If Indicated (05/04/20 19:54) Alcohol (05/04/20 20:00) Ed Iv/Invasive Line Start (05/04/20 20:00) Ns Iv 1000 Ml (Sodium Chloride 0.9%) (05/04/20 20:00) Hydroxyzine Cap/Tab (Vistaril) (05/04/20 20:00) Ekg Tracing (05/04/20 21:38) Troponin I Fs (05/04/20 21:38) Medications Given in ED Current Medications Medications Dose Ordered Sig/[place] Route Start Time Stop Time Status Last Admin Dose Admin Hydroxyzine Pamoate 25 mg ONCE ONCE PO 05/04/20 20:00 05/04/20 20:02 DC 05/04/20 20:17 25 MG Sodium Chloride 1,000 ml @ 0 mls/hr Q0M ONCE IV 05/04/20 20:00 05/04/20 20:02 DC 05/04/20 20:17 1,000 MLS/HR Vital Signs/I&O 05/04/20 19:44 Temp 37.0 Pulse 104 Resp 24 B/P (MAP) 164/92 (116) Pulse Ox 96 O2 Delivery Room Air Progress Progress Note : Time: 22:54 Progress Note Patient with late alcohol level. Patient with negative troponin 2, negative EKG. Patient symptoms seemed very consistent with an anxiety reaction. Patient admitted there the visit that he is been on anxiety medication the past, that he used to have quite a bit of difficulty with anxiety. Patient had no further symptoms after Vistaril. Patient rested comfortably with no further chest pain throughout his stay. I will prescribe him some Vistaril to help with his anxiety. I recommended he follow-up with his primary care provider for long-term treatment. Patient is discharged home in stable condition Departure Impression Primary Impression: Chest pain Qualified Codes: R07.9 - Chest pain, unspecified Additional Impression: Anxiety Disposition: 01 HOME, SELF-CARE Condition: Stable Departure-Patient Inst. Referrals: NO,LOCAL PHYSICIAN (PCP/Family) Primary Care Physician Patient Instructions: Anxiety, Adult (DC), Chest Pain That Is Not Caused by the Heart (DC) Add. Discharge Instructions: Follow-up with your primary care provider for further outpatient treatment and continuation of care Scripts Hydroxyzine HCl (Hydroxyzine HCl) 50 Mg Tablet 50 MG PO Q8H PRN for ANXIETY, #15 TAB Prov: BRENDEN LOZANO DO 05/04/20 BRENDEN LOZANO DO May 04, 2020 20:00
[2020-05-04 20:14] LABS: BASOPHILS % (AUTO) 1 % (0-10); EOSINOPHILS % (AUTO) 0 % (0-10); HEMATOCRIT 54 % (40-54); HEMOGLOBIN 18.5 G/DL (13.3-17.7); LYMPHOCYTES % (AUTO) 23 % (12-44); MEAN CORPUSCULAR HEMOGLOBIN 28 PG (25-34); MEAN CORPUSCULAR HGB CONC 34 G/DL (32-36); MEAN CORPUSCULAR VOLUME 82 FL (80-99); MEAN PLATELET VOLUME 9.8 FL (7.4-10.4); MONOCYTES % (AUTO) 6 % (0-12); NEUTROPHILS % (AUTO) 69 % (42-75); PLATELET COUNT 319 10^3/uL (130-400); WHITE BLOOD COUNT 9.8 10^3/uL (4.3-11.0)
[2020-05-04 20:15] LABS: BASOPHILS # (AUTO) 0.1 10^3/uL (0.0-0.1); LYMPHOCYTES # (AUTO) 2.3 X 10^3 (1.0-4.0); MONOCYTES # (AUTO) 0.6 X 10^3 (0.0-1.0); NEUTROPHILS # (AUTO) 6.7 X 10^3 (1.8-7.8)
[2020-05-04 20:26] LABS: BUN/CREATININE RATIO 7; CARBON DIOXIDE 14 MMOL/L (21-32); CHLORIDE 102 MMOL/L (98-107); GFR ESTIMATED > 60; POTASSIUM 3.2 MMOL/L (3.6-5.0); SODIUM 135 MMOL/L (135-145)
[2020-05-04 20:27] LABS: ALANINE AMINOTRANSFERASE 18 U/L (0-55); ALBUMIN 4.1 GM/DL (3.2-4.5); ALKALINE PHOSPHATASE 81 U/L (40-136); BILIRUBIN,TOTAL 0.7 MG/DL (0.1-1.0); CALCIUM 9.5 MG/DL (8.5-10.1); GLUCOSE 100 MG/DL (70-105); TOTAL PROTEIN 7.3 GM/DL (6.4-8.2)
[2020-05-04 20:29] LABS: PROTHROMBIN TIME PATIENT 13.3 SEC (12.2-14.7)
--- NOTE | 2020-05-04 20:33 | Diagnostic Imaging Report ---
INDICATION: Chest pain. COMPARISON: 03/27/2020. EXAMINATION: Single view of the chest was obtained. FINDINGS: Clear lungs, bilaterally. The heart is normal. There is no pneumothorax but osseous structures are normal. IMPRESSION: Negative chest. Dictated by: Dictated on workstation # [id number]
[2020-05-04 20:36] LABS: BACTERIA,URINE NEGATIVE /HPF; BILIRUBIN,URINE NEGATIVE (NEGATIVE); CLARITY,URINE CLEAR; COLOR,URINE PALE YELLOW; GLUCOSE, URINE (UA) NEGATIVE (NEGATIVE); KETONES,URINE NEGATIVE (NEGATIVE); LEUKOCYTE ESTERASE ,URINE TRACE (NEGATIVE); NITRITE,URINE NEGATIVE (NEGATIVE); PH,URINE 6.5 (5-9); PROTEIN,URINE NEGATIVE (NEGATIVE); SQUAMOUS EPITHELIAL CELL,UR RARE /HPF; WBC,URINE 0-2 /HPF
[2020-05-04 20:37] LABS: AMPHETAMINE SCREEN, URINE NEGATIVE (NEGATIVE); BARBITURATE SCREEN URINE NEGATIVE (NEGATIVE); BENZODIAZEPINES SCREEN URINE NEGATIVE (NEGATIVE); CANNABINOID SCREEN, URINE NEGATIVE (NEGATIVE); COCAINE SCREEN URINE NEGATIVE (NEGATIVE); METHADONE STAT NEGATIVE (NEGATIVE); METHAMPHETAMINE SCREEN URINE S NEGATIVE (NEGATIVE); OPIATE SCREEN URINE NEGATIVE (NEGATIVE); OXYCODONE STAT NEGATIVE (NEGATIVE); PROPOXYPHENE STAT NEGATIVE (NEGATIVE); TRICYCLIC ANTIDEPRESSANTS SCRE NEGATIVE (NEGATIVE)
--- NOTE | 2020-05-04 21:24 | NUR ---
PT STATED HIS PAIN IS A 1.
[2020-05-04] MEDS ORDERED: HYDR50TA76 PO (22:59)
[2020-05-04 23:04] VITALS: BP 133/81
== END 2020-05-04 22:04 | disposition home or self-care (01) ==
LOC: EDUNIT# 19:44 → ER FS 19:45
DX: R07.9 Chest pain, unspecified (principal); F41.9 Anxiety disorder, unspecified; Z77.22 Contact with and (suspected) exposure to environmental tobacco smoke (acute) (chronic)
CPT/HCPCS: 36415; 71045; 80053; 80306; 81000; 83735; 83880; 84484; 85025; 85379; 85610; 85730; 93005; 93041; 99284; G0480; 80320